=== PATIENT | male | born 1985 | race African-American/Black ===

== ENCOUNTER 2017-02-09 19:33 | Inpatient (IN) | payer OTHER ==
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
--- NOTE | ~2017-02-09 | HP ---
Unit #: [id number] #: [id number] Patient: JANUSZ TOLEDO [id number] [place] [address] [id number] I MR#: [id number] NAME: JANUSZ TOLEDO ROOM: [facility] Age: 31 Sex: M Admission Date: 02/09/2017 : 1985 Attending Physician: Alek Kay M.D. Admitting Physician: Alek Kay M.D. Primary Care Physician: Generic Doctor Not In System HISTORY AND PHYSICAL HISTORY OF PRESENT ILLNESS Janusz is a 31 year old admitted to [address] [place] [address] with depression and verbalizing wanting to hurt himself. PAST MEDICAL HISTORY 1. Degenerative disc disease. 2. History of IV drug use. He says he has not used anything in 2 years. PAST SURGICAL HISTORY Nothing reported. ALLERGIES No known drug allergies. SOCIAL HISTORY Smokes, drinks alcohol and uses marijuana on occasion. FAMILY HISTORY Medically noncontributory. REVIEW OF SYSTEMS CONSTITUTIONAL: No fever or chills. HEENT: Denies any sore throat, ear pain or runny nose. CARDIOVASCULAR: Denies chest pain, irregular heart rhythm or palpitations. CHEST: Denies shortness of breath or cough. No hemoptysis. GASTROINTESTINAL: Denies nausea, vomiting, diarrhea or chronic constipation. ENDOCRINE: Denies history of increased thirst or urination. No recent significant weight loss or gain. GENITOURINARY: Denies dysuria, frequency, or hematuria. SKIN: Denies any rashes. HEMATOLOGIC: Denies history of increased bleeding or bruising. MUSCULOSKELETAL: Denies any hot, swollen joints. No generalized muscle pain. NEUROLOGIC: Denies problems with vision or speech. No frequent, severe headaches. No numbness, tingling or weakness in any extremities. Denies loss of bladder or bowel control. CURRENT MEDICATIONS 1. Zoloft 50 mg daily. 2. Desyrel p.r.n. 3. Milk of Magnesia p.r.n. 4. Maalox p.r.n. Unit #: [id number] #: [id number] Patient: JANUSZ TOLEDO 5. Tylenol p.r.n. 6. Nicotine patch 14 mg daily. PHYSICAL EXAMINATION GENERAL: Alert, well-nourished, in no apparent distress. VITAL SIGNS: Blood pressure 136/84, heart rate 80, respirations 16, temperature 98.6. WEIGHT: 150. HEIGHT: 5 feet 6 inches. SKIN: Warm and dry without rash or lesion. HEENT: Normocephalic. TMs not viewed. Oral and nasal passages clear. Conjunctivae clear. PERRLA. EOMs intact. NECK: Supple without lymphadenopathy or thyromegaly. HEART: Regular rate and rhythm without murmur. LUNGS: Clear. ABDOMEN: Soft, nontender. : Not done. EXTREMITIES: No evidence of cyanosis, clubbing or edema. Moves all without focal deficit. NEUROLOGICAL: Grossly within normal limits. Cranial Nerves: II: Visual villanueva are intact. III, IV AND : Extraocular movements are intact. Pupils are equal, round and reactive to light. V: Facial sensation is grossly normal. VII: Facial movements and expression are normal. VIII: Auditory acuity grossly intact. IX, X: Uvula is midline. Phonation is normal. XI: Patient shrugs shoulders and turns head normally. XII: Tongue protrudes in the midline. Sensory and Motor Function: Sensory and motor sensation is grossly normal. Motor: moves all extremities well. Coordination: Gait is normal. Deep Tendon Reflexes: Intact. IMPRESSION Psychiatric admission. RECOMMENDATIONS PSYCHIATRIC: Per psychiatrist. MEDICAL: See no contraindications to participate in facility's activities. MEDICAL PROGNOSIS Good. MEDICAL CONDITION Stable. Dictated by... Zahra Lopes P.A.-C. for Cathie Anaya/jenny TD: 02/10/2017 19:54 JOB #: [id number] Unit #: [id number] #: [id number] Patient: JANUSZ TOLEDO HISTORY AND PHYSICAL Page 1 of 1 X Zahra Lopes HISTORY AND PHYSICAL
--- NOTE | ~2017-02-09 | DS ---
Unit #: [id number] #: [id number] Patient: JANUSZ TOLEDO [id number] [facility] [address] [place] [address] [id number] I MR#: [id number] NAME: JANUSZ TOLEDO ROOM: P258 Age: 31 Sex: M Admission Date: 02/09/2017 : 1985 Discharge Date: 02/12/2017 Attending Physician: Alek Kay M.D. Primary Care Physician: Generic Doctor Not In System DISCHARGE SUMMARY REASON FOR ADMISSION Janusz is a 31-year-old man who recently relocated to [place] and came to the hospital reporting he had been off his psychiatric medication and was homeless and suicidal. He was unable to contract for safety and was admitted for stabilization. DIAGNOSTIC STUDIES LABORATORY RESULTS: Please see hospital chart. HOSPITAL COURSE Janusz was admitted and placed on suicide precautions. Zoloft 50 mg daily for treatment of depression was reinitiated and he was referred to the [facility] and [facility] and given access point information for the homeless resources in [place]. After a brief hospital stay, he was able to contract for safety and was discharged in good condition. DISCHARGE DIAGNOSES AXIS I: Major depression. AXIS II: No diagnosis. AXIS III: None acute. AXIS IV: AXIS V: DISCHARGE INSTRUCTIONS Follow up with [facility] and [facility]. DISCHARGE MEDICATIONS Zoloft 50 mg daily for depression. CONDITION AT DISCHARGE Improved. PROGNOSIS Good. DIET AND ACTIVITY Per primary care doctor. Dictated by... Unit #: [id number] #: [id number] Patient: JANUSZ TOLEDO Cathie Guerrero/sydnie TD: 03/29/2017 13:12 JOB #: [id number] DISCHARGE SUMMARY Page 1 of 1 X Alek Kay MD X DISCHARGE SUMMARY
[2017-02-10 11:02] LABS: AMPHETAMINE NEG (NEG); BARBITURATES NEG (NEG); BENZODIAZEPINES NEG (NEG); COCAINE POS (NEG); MARIJUANA POS (NEG); OPIATES NEG (NEG); TRICYCLIC ANTIDEPRESSANTS NEG (NEG); U METHADONE NEG (NEG)
[2017-02-10 12:33] LABS: BASOPHIL% 0.6 % (0-2.5); EOSINOPHIL# 0.2 X10e3 (0-0.7); EOSINOPHIL% 2.8 % (0.0-7.0); HEMOGLOBIN 13.8 gm/dL (13.0-16.0); LYMPHOCYTE# 1.9 X10e3 (1.0-3.5); LYMPHOCYTE% 27.4 % (17.0-45.0); MEAN CELL VOLUME 87.8 FL (83-96); MEAN CORPUSCULAR HEMOGLOBIN 28.2 PG (28-34); MEAN CORPUSCULAR HGB CONC 32.1 g/dL (30-36); MEAN PLATELET VOLUME 7.2 FL (6.5-11.5); MONOCYTE# 0.7 X10e3 (0-1.0); MONOCYTE% 9.6 % (3.0-12.0); NEUTROPHIL# 4.1 X10e3 (1.5-7.1); NEUTROPHIL% 59.6 % (40-75); PLATELET COUNT 336 X10e3 (140-420); RED BLOOD COUNT 4.89 X10e (3.90-5.60); RED CELL DISTRIBUTION WIDTH 14.3 % (11.0-15.5); WHITE BLOOD COUNT 6.9 X10e3 (4.0-10.5)
[2017-02-10 12:38] LABS: DIFF IND NO
[2017-02-10 12:49] LABS: ALBUMIN SERUM 3.8 g/dL (3.5-5.0); BILIRUBIN,TOTAL 0.3 mg/dL (0.2-2.0); BUN/CREATININE RATIO 12.5; CALCIUM SERUM 9.5 mg/dL (8.4-10.2); CREATININE SERUM 0.8 mg/dL (0.6-1.4); POTASSIUM 4.3 mmol/L (3.5-5.1); PROTEIN TOTAL SERUM 7.5 g/dL (6.0-8.3)
== END 2017-02-12 17:40 | disposition home or self-care (01) | DRG 881 ==
LOC: P2L 19:33
PROVIDERS: Psychiatry & Neurology Psychiatry
DX: F32.9 Major depressive disorder, single episode, unspecified (principal); R45.851 Suicidal ideations; F17.210 Nicotine dependence, cigarettes, uncomplicated; Z59.0 Homelessness
CPT/HCPCS: 80053; 80307; 85025